=== PATIENT | male | born 1990 | race American Indian/Alaskan Native ===

== ENCOUNTER 2019-04-20 21:09 | Emergency (ER) | payer SELFPAY ==
[2019-04-20 21:20] VITALS: BP 122/82
--- NOTE | 2019-04-20 22:14 | Emergency Department Report ---
Chief Complaint: Urogenital-Male Stated Complaint: STD CHECK - HPI History of Present Illness: 29 yo male desires STD check. MSE performed. Mr. Lanza erick prior to approriate disposition. - Exam Vital Signs: Vital Signs 04/20/19 21:19 Temperature 97.5 F L Pulse Rate 73 Respiratory 17 Rate Blood Pressure 122/82 O2 Sat by Pulse 98 Oximetry MSE screening note: Focused history and physical exam performed. Due to findings the following was ordered: ED Disposition for MSE Clinical Impression: Encounter for medical screening examination Disposition: Z ERICK Condition: Stable
== END 2019-04-20 22:15 | disposition left against medical advice (07) ==
LOC: ED 21:09
DX: A64 Unspecified sexually transmitted disease (principal); Z53.21 Procedure and treatment not carried out due to patient leaving prior to being seen by health care provider
CPT/HCPCS: 99281

== ENCOUNTER 2019-05-19 06:47 | Emergency (ER) | payer SELFPAY ==
[2019-05-19 07:23] VITALS: BP 141/84
--- NOTE | 2019-05-19 08:32 | XRay Report ---
CHEST 2 VIEWS INDICATION / CLINICAL INFORMATION: cough. COMPARISON: None available. FINDINGS: SUPPORT DEVICES: None. HEART / MEDIASTINUM: No significant abnormality. LUNGS / PLEURA: No significant pulmonary or pleural abnormality. No pneumothorax. ADDITIONAL FINDINGS: No significant additional findings. IMPRESSION: No significant abnormality Signer Name: Lance Wells MD FACR Signed: 05/19/2019 8:28 AM Workstation Name: [id number]
--- NOTE | 2019-05-19 08:52 | Emergency Department Report ---
Chief Complaint: Upper Respiratory Infection Stated Complaint: COUGHING BLOODY MUCUS Time Seen by Provider: 05/19/19 08:12 - HPI History of Present Illness: 29-year-old -[place] male presents to the emergency room stating he has a cough and had cold symptoms for a week. Patient states that he was seen at [facility] and was prescribed antibiotics. Patient states that he has been coughing more mucus. Patient states this morning his mucus has a tinge of blood. Patient reports when he takes the Benadryl it seems to help with his nasal mucus production. Patient denies any fever chills no nausea no vomiting no shortness of breath appetite is good. - Exam Vital Signs: Vital Signs 05/19/19 07:22 Temperature 98.3 F Pulse Rate 79 Respiratory 16 Rate Blood Pressure 141/84 O2 Sat by Pulse 100 Oximetry Physical Exam: Gen: alert oriented NAD HEENT: Ears are normal mouth soft wax, throat patent nonerythematous has some postnasal drip nontender to palpate nares turbinates enlargement. Cardic: regular rate and rhythm no murmurs appreciated Resp: Clear to auscultation bilateral no wheezing no rales or rhonchi. Abdomen: Soft nontender nondistended normal bowel sounds. MSE screening note: Focused history and physical exam performed. Due to findings the following was ordered: 29-year-old -[place] male presents to the emergency room stating he has a cough and had cold symptoms for a week. Patient states that he was seen at [facility] and was prescribed antibiotics. Patient states that he has been coughing more mucus. Patient states this morning his mucus has a tinge of blood. Patient reports when he takes the Benadryl it seems to help with his nasal mucus production. Patient denies any fever chills no nausea no vomiting no shortness of breath appetite is good. Recommend taking sspm-exn-btelsme Claritin or Zyrtec's. Recommend taking hkax-dst-ezovjjp omeprazole/Prilosec for acid reflux. Discussed with patient to follow-up with a primary care provider patient will be referred to Dr. Kohli. ED Disposition for MSE Clinical Impression: Allergic rhinitis Qualifiers: Allergic rhinitis seasonality: seasonal Disposition: MED SCREENING EXAM-LEFT Is pt being admited?: No Does the pt Need Aspirin: No Condition: Stable Instructions: Allergic Rhinitis (ED) Additional Instructions: Recommend taking zbmk-zoz-ezxnjut Claritin or Zyrtec's. Recommend taking tzbb-zhk-qwppjcg omeprazole/Prilosec for acid reflux. Follow-up with a primary care provider. I have listed 1 below for your convenience. Referrals: PRIMARY CAREMD [Primary Care Provider] - 3-5 Days WOLF URIBE MD [Staff Physician] - 3-5 Days Forms: Work/School Release Form(ED)
== END 2019-05-19 09:07 | disposition left against medical advice (07) ==
LOC: ED 06:47
DX: J30.9 Allergic rhinitis, unspecified (principal)
CPT/HCPCS: 71046

== ENCOUNTER 2019-09-27 05:07 | Emergency (ER) | payer OTHER ==
[2019-09-27] MEDS ORDERED: ASPIRIN 325 MG TAB PO ONE (05:49)
[2019-09-27] MEDS ORDERED: FAMOTIDINE 20 MG TAB PO ONE (06:14)
[2019-09-27] MEDS ORDERED: NITROGLYCERIN 0.4 MG TAB SUBL SL PRN (06:14)
[2019-09-27] MEDS ORDERED: SODIUM CHLORIDE 0.9% 500 ML 500 ML IV ONE (06:14)
--- NOTE | 2019-09-27 06:15 | Emergency Department Report ---
ED Chest Pain HPI - General Chief Complaint: Chest Pain Stated Complaint: ACID REFLEX/STOMACH PAIN PUI?: No Time Seen by Provider: 09/27/19 06:06 Source: patient, RN notes reviewed Mode of arrival: Ambulatory Limitations: No Limitations - History of Present Illness Initial Comments: Patient is a 29-year-old gentleman who is not known to myself previously, reports a family history of heart disease, as well as possible "acid reflux. He presents to the ER with a complaint of a few days of left-sided chest pain, which does not radiate to the back, arms or neck, without vomiting, diaphoresis, he does endorse intermittent shortness of breath which is not exertional. He denies DVT and pulmonary embolism risk factors. Chest pain increases with palpation, and decreases with rest. It is sometimes worse in the morning. It is not positional with sitting up or sitting down, and does not change when taking a deep breath. Denies fever, cough, and COVID symptomatology. MD Complaint: chest pain -: Gradual, days(s) Pain Location: left chest Pain Radiation: none Severity: mild Quality: aching Consistency: intermittent Improves With: rest Worsens With: palpation re: dyspnea. denies: nausea, vomting, diaphoresis Other Symptoms: denies: cough, fever, syncope Treatments Prior to Arrival: none Aspirin use within the Past 7 Days: (0) No - Related Data Allergies Allergy/AdvReac Type Severity Reaction Status Date / Time No Known Allergies Allergy Verified 04/20/19 21:16 Heart Score - HEART Score History: Slightly suspicious EKG: Non-specific Age: < 45 Risk factors: 1-2 risk factors Troponin: < normal limit HEART Score: 2 - Critical Actions Critical Actions: 0-3 pts:0.9-1.7%risk of adverse cardiac event.Candidate for discharge ED Review of Systems ROS: Stated complaint: ACID REFLEX/STOMACH PAIN Other details as noted in HPI Constitutional: denies: diaphoresis, fever Eyes: denies: eye discharge Respiratory: shortness of breath. denies: cough Cardiovascular: chest pain Gastrointestinal: denies: nausea, vomiting, diarrhea, hematemesis, melena, hem atochezia Genitourinary: denies: dysuria Musculoskeletal: denies: back pain Skin: denies: lesions Neurological: denies: weakness Hematological/Lymphatic: denies: easy bleeding ED Past Medical Hx - Past Medical History Previous Medical History?: Yes Hx GERD: Yes - Social History Smoking Status: Never Smoker Substance Use Type: Alcohol ED Physical Exam - General Limitations: No Limitations General appearance: alert, in no apparent distress - Head Head exam: Present: atraumatic, normocephalic - Eye Eye exam: Present: normal appearance, EOMI. Absent: nystagmus - ENT ENT exam: Present: normal exam, normal orophraynx, mucous membranes moist, normal external ear exam - Neck Neck exam: Present: normal inspection, full ROM. Absent: tenderness, meningismus - Respiratory Respiratory exam: Present: normal lung sounds bilaterally, chest wall tenderness. Absent: respiratory distress, wheezes, rales, rhonchi, stridor - Cardiovascular Cardiovascular Exam: Present: normal rhythm, bradycardia, normal heart sounds. Absent: tachycardia, irregular rhythm, systolic murmur, diastolic murmur, rubs, gallop - GI/Abdominal GI/Abdominal exam: Present: soft, normal bowel sounds. Absent: distended, tenderness, guarding, rebound, rigid, pulsatile mass - Rectal Rectal exam: Present: deferred - Extremities Exam Extremities exam: Present: normal inspection, full ROM, normal capillary refill, other (2+ pulses noted in the bilateral upper and lower extremities. There is no palpable cord. negative Homans sign. Muscular compartments are soft. The pelvis is stable.). Absent: pedal edema, calf tenderness - Back Exam Back exam: Present: normal inspection, full ROM. Absent: tenderness, CVA tenderness (R), CVA tenderness (L), paraspinal tenderness, vertebral tenderness - Neurological Exam Neurological exam: Present: alert, oriented X3, other (No facial droop. Tongue midline. Extraocular movements intact bilaterally. Facial sensation intact to light touch in V1, V2, V3 distribution bilaterally. 5 and a 5 strength in 4 extremities. Sensation intact to light touch in 4 extremities.). Absent: motor sensory deficit - Psychiatric Psychiatric exam: Present: normal affect, normal mood - Skin Skin exam: Present: warm, dry, intact, normal color. Absent: rash ED Course Vital Signs 09/27/19 09/27/19 09/27/19 05:47 06:09 06:14 Temperature 97.4 F L Pulse Rate 65 67 Respiratory 20 16 12 Rate Blood Pressure 131/99 Blood Pressure 132/76 [Left] O2 Sat by Pulse 100 100 100 Oximetry 08/06/20 08/06/20 08/06/20 06:16 06:30 06:46 Temperature Pulse Rate 66 60 60 Respiratory 12 20 21 Rate Blood Pressure 128/74 121/66 Blood Pressure [Left] O2 Sat by Pulse 100 100 100 Oximetry 09/27/19 09/27/19 09/27/19 07:00 07:15 07:30 Temperature Pulse Rate 60 63 61 Respiratory 13 15 15 Rate Blood Pressure 126/80 130/71 116/74 Blood Pressure [Left] O2 Sat by Pulse 100 100 98 Oximetry 09/27/19 09/27/19 09/27/19 07:45 08:00 08:16 Temperature Pulse Rate 63 68 61 Respiratory 23 11 L 21 Rate Blood Pressure 120/71 120/71 124/75 Blood Pressure [Left] O2 Sat by Pulse 99 100 100 Oximetry 09/27/19 09/27/19 09/27/19 08:30 08:45 10:10 Temperature Pulse Rate 57 L 63 70 Respiratory 11 L 24 24 Rate Blood Pressure 131/61 123/72 Blood Pressure 126/75 [Left] O2 Sat by Pulse 99 100 100 Oximetry - Reevaluation(s) Reevaluation #1: 09/27/19 07:37 Differential diagnosis, including but not limited to: GERD, gastritis, hiatal hernia, pneumonia, costochondritis, pericarditis, coronary artery disease Assessment and plan: 29-year-old gentleman, who is afebrile, with reassuring vital signs, not tachycardic, tachypneic or hypoxic, without DVT or pulmonary embolism risk factors, who is low risk by Wells criteria for pulmonary embolism, PERC negative, with reproducible chest wall pain, troponin that is negative, abnormal EKG, likely early repolarization versus pericarditis. The EKG is not morphologically consistent with a STEMI. The EKG was transmitted to our health education director on-call, Dr. Anne Fritz, who agrees that patient does not meet thrombolysis criteria, or require activation of the catheterization lab. On multiple re-evaluations, the patient is resting comfortably, in his stretcher, and in no acute distress. He is at low risk for major adverse cardiac event as per heart score. I will request a formal ER cardiology consultation, to to determine need and urgency for cardiac risk ratification. Cardiology consultation has been requested, we are waiting for them to call back. Reevaluation #2: 09/27/19 08:10 Patient continues to play on his cell phone. He is making multiple requests to leave. Sterile pyuria reviewed and appreciated and asymptomatic. We are waiting for cardiology to call back. Reevaluation #3: 09/27/19 08:43 Patient seen and evaluated by cardiology, Junior Serrano, working with Dr Sergio Mock, they advised the patient can follow-up as an outpatient for further evaluation. Patient requesting to go, playing on his cell phone, and in no acute distress 09/27/19 15:06 Reevaluation #4: 09/27/19 09:51 While in the emergency room, the patient states that he started to urinate a little bit of blood. He denies testicular pain, dysuria and hematuria. He reports multiple sexual contacts in the past few months, intermittently with condoms. Given that he is now having symptoms, will be treated empirically with ceftriaxone and azithromycin. GC culture will be sent. He is instructed to follow-up with outpatient primary care for his pyuria. PHONG score - Phong Score Age > 65: (0) No Aspirin use within the Past 7 Days: (0) No 3 or more CAD Risk Factors: (0) No 2 or more Angina events in past 24 hrs: (0) No Known CAD with more than 50% Stenosis: (0) No Elevated Cardiac Markers: (0) No ST Deviation Greater than 0.5mm: (0) No PHONG Score: 0 ED Medical Decision Making - Lab Data Result diagrams: 09/27/19 06:12 09/27/19 06:12 Vital Signs 09/27/19 09/27/19 05:47 06:14 Temperature 97.4 F L Pulse Rate 65 67 Respiratory 20 12 Rate Blood Pressure 131/99 Blood Pressure 132/76 [Left] O2 Sat by Pulse 100 100 Oximetry Lab Results 09/27/19 09/27/19 09/27/19 Range/Units 06:12 06:12 06:14 WBC 5.8 (4.5-11.0) K/mm3 RBC 5.08 H (3.65-5.03) M/mm3 Hgb 15.3 H (11.8-15.2) gm/dl Hct 45.8 H (35.5-45.6) % MCV 90 (84-94) fl MCH 30 (28-32) pg MCHC 34 (32-34) % RDW 13.2 (13.2-15.2) % Plt Count 221 (140-440) K/mm3 Lymph % (Auto) 28.0 (13.4-35.0) % Caroline % (Auto) 9.1 H (0.0-7.3) % Eos % (Auto) 2.4 (0.0-4.3) % Baso % (Auto) 0.4 (0.0-1.8) % Lymph # 1.6 (1.2-5.4) K/mm3 Caroline # 0.5 (0.0-0.8) K/mm3 Eos # 0.1 (0.0-0.4) K/mm3 Baso # 0.0 (0.0-0.1) K/mm3 Seg Neutrophils % 60.1 (40.0-70.0) % Seg Neutrophils # 3.5 (1.8-7.7) K/mm3 PT (12.2-14.9) Sec. INR (0.87-1.13) Sodium 139 (137-145) mmol/L Potassium 4.0 (3.6-5.0) mmol/L Chloride 101.4 (98-107) mmol/L Carbon Dioxide 25 (22-30) mmol/L Anion Gap 17 mmol/L BUN 13 (9-20) mg/dL Creatinine 0.9 (0.8-1.3) mg/dL Estimated GFR > 60 ml/min BUN/Creatinine Ratio 14 % Glucose 97 (75-100) mg/dL Calcium 9.3 (8.4-10.2) mg/dL Magnesium (1.7-2.3) mg/dL Total Creatine Kinase (55-170) units/L Troponin T < 0.010 (0.00-0.029) ng/mL Urine Color Yellow (Yellow) Urine Turbidity Clear (Clear) Urine pH 5.0 (5.0-7.0) Ur Specific [place] 1.023 (1.003-1.030) Urine Protein <15 mg/dl (Negative) mg/dL Urine Glucose (UA) Neg (Negative) mg/dL Urine Ketones Neg (Negative) mg/dL Urine Blood Neg (Negative) Urine Nitrite Neg (Negative) Urine Bilirubin Neg (Negative) Urine Urobilinogen < 2.0 (<2.0) mg/dL Ur Leukocyte Esterase Tr (Negative) Urine WBC (Auto) 8.0 H (0.0-6.0) /HPF Urine RBC (Auto) 2.0 (0.0-6.0) /HPF U Epithel Cells (Auto) < 1.0 (0-13.0) /HPF Urine Mucus Few /HPF 09/27/19 09/27/19 Range/Units 06:17 06:17 WBC (4.5-11.0) K/mm3 RBC (3.65-5.03) M/mm3 Hgb (11.8-15.2) gm/dl Hct (35.5-45.6) % MCV (84-94) fl MCH (28-32) pg MCHC (32-34) % RDW (13.2-15.2) % Plt Count (140-440) K/mm3 Lymph % (Auto) (13.4-35.0) % Caroline % (Auto) (0.0-7.3) % Eos % (Auto) (0.0-4.3) % Baso % (Auto) (0.0-1.8) % Lymph # (1.2-5.4) K/mm3 Caroline # (0.0-0.8) K/mm3 Eos # (0.0-0.4) K/mm3 Baso # (0.0-0.1) K/mm3 Seg Neutrophils % (40.0-70.0) % Seg Neutrophils # (1.8-7.7) K/mm3 PT 12.1 L (12.2-14.9) Sec. INR 0.89 (0.87-1.13) Sodium (137-145) mmol/L Potassium (3.6-5.0) mmol/L Chloride (98-107) mmol/L Carbon Dioxide (22-30) mmol/L Anion Gap mmol/L BUN (9-20) mg/dL Creatinine (0.8-1.3) mg/dL Estimated GFR ml/min BUN/Creatinine Ratio % Glucose (75-100) mg/dL Calcium (8.4-10.2) mg/dL Magnesium 2.00 (1.7-2.3) mg/dL Total Creatine Kinase 247 H (55-170) units/L Troponin T (0.00-0.029) ng/mL Urine Color (Yellow) Urine Turbidity (Clear) Urine pH (5.0-7.0) Ur Specific [place] (1.003-1.030) Urine Protein (Negative) mg/dL Urine Glucose (UA) (Negative) mg/dL Urine Ketones (Negative) mg/dL Urine Blood (Negative) Urine Nitrite (Negative) Urine Bilirubin (Negative) Urine Urobilinogen (<2.0) mg/dL Ur Leukocyte Esterase (Negative) Urine WBC (Auto) (0.0-6.0) /HPF Urine RBC (Auto) (0.0-6.0) /HPF U Epithel Cells (Auto) (0-13.0) /HPF Urine Mucus /HPF - EKG Data -: EKG Interpreted by Ut EKG shows normal: sinus rhythm Rate: normal - EKG Data 09/27/19 07:28 EKG #1 shows sinus rhythm, bradycardia, 58 bpm, normal axis, normal intervals, high left ventricular voltage, likely early repolarization, question mild [place] depressions, nonspecific concave up ST elevation 1, aVF, V3, V4, V5 and V6. The EKG is abnormal. The EKG is not a STEMI. EKG 2 is essentially unchanged from prior, it is not consistent with an ST elevation myocardial infarction. - Radiology Data Radiology results: report reviewed, image reviewed Print Report Referring Physician: KRYSTYNA CHANDLER Patient Name: JACKSON LEA Date of : 1990 Sex: Male Report Date: 2019-09-27 Report Status: Finalized Findings [address] [address] XRay Report Signed Patient: JACKSON LEA MR#: [id number] : 1990 Acct:[id number] Age/Sex: 29 / M ADM Date: 09/27/19 Loc: ED Attending Dr: Ordering Physician: KRYSTYNA CHANDLER MD Date of Service: 09/27/19 Procedure(s): XR chest 1V ap Accession Number(s): [id number] cc: KRYSTYNA CHANDLER MD Fluoro Time In Minutes: CHEST 1 VIEW 0605 INDICATION / CLINICAL INFORMATION: Chest Pain COMPARISON: 05/19/2019 FINDINGS: SUPPORT DEVICES: None HEART / MEDIASTINUM: No significant abnormality. LUNGS / PLEURA: No significant pulmonary or pleural abnormality. No pneumothorax. ADDITIONAL FINDINGS: No significant additional findings. IMPRESSION: No significant acute abnormality Signer Name: Arjun Cook MD Signed: 09/27/2019 6:33 AM Workstation Name: [id number] Transcribed By: SHAMIKA Dictated By: Arjun Cook MD Electronically Authenticated By: Arjun Cook MD Signed Date/Time: 09/27/19632 DD/ 1 TD/TT: Critical care attestation.: If time is entered above; I have spent that time in minutes in the direct care o f this critically ill patient, excluding procedure time. ED Disposition Clinical Impression: Chest wall pain, Pyuria Disposition: -01 TO HOME OR SELFCARE Is pt being admited?: No Does the pt Need Aspirin: No Condition: Stable Instructions: Nonspecific Urethritis in Men (ED) Additional Instructions: Rest, avoid heavy lifting, and avoid strenuous physical activities. Patient may take Motrin/ibuprofen, 400 mg by mouth, with food, every 6 hours as needed for pain, alternating with Tylenol kyir-rgd-dfdohsw, 650 mg by mouth, every 4-6 hours as needed for pain, maximum daily dose of Tylenol to not exceed 3 g per 24 hours. Follow-up with a partition assembler within the next 3 to 5 days. Follow-up with a primary care doctor within the next month. Avoid consumption of heavy and/or spicy foods, and alcohol. Please return to the emergency room right away with new pain, worsening pain, migration of pain, projectile vomiting, change in mental status, confusion, inability to tolerate liquid feeds, new, worsened or different symptoms not present on the initial emergency room evaluation. Cultures were sent today, and results will be available next 3-5 days. Please have your primary care doctor call the medical records department to obtain your culture results. recommend outpatient testing for sexually transmitted diseases, including hepatitis, syphilis and HIV. I also recommend that you abstain from sexual activity until a physician states that it is safe for you to resume sexual activity, and any partners that you have been sexually active with have been tested/treated/evaluated for sexual transmitted diseases. Referrals: PRIMARY CARE, [Primary Care Provider] - 3-5 Days WOLF URIBE MD [Staff Physician] - as needed (primary care) LUOISE JAMA MD [Staff Physician] - 3-5 Days (cardiology) Forms: Work/School Release Form(ED)
[2019-09-27 06:30] LABS: Basophils % (Auto) 0.4 % (0.0-1.8); Eosinophils # (Auto) 0.1 K/mm3 (0.0-0.4); Eosinophils % (Auto) 2.4 % (0.0-4.3); Hematocrit 45.8 % (35.5-45.6); Hemoglobin 15.3 gm/dl (11.8-15.2); Lymphocytes # (Auto) 1.6 K/mm3 (1.2-5.4); Mean Corpuscular HGB Conc 34 % (32-34); Mean Corpuscular Volume 90 fl (84-94); Monocytes # (Auto) 0.5 K/mm3 (0.0-0.8); Monocytes % (Auto) 9.1 % (0.0-7.3); Platelet Count 221 K/mm3 (140-440); Red Blood Count 5.08 M/mm3 (3.65-5.03); Red Cell Distribution Width 13.2 % (13.2-15.2)
--- NOTE | 2019-09-27 06:37 | XRay Report ---
CHEST 1 VIEW 0605 INDICATION / CLINICAL INFORMATION: Chest Pain COMPARISON: 05/19/2019 FINDINGS: SUPPORT DEVICES: None HEART / MEDIASTINUM: No significant abnormality. LUNGS / PLEURA: No significant pulmonary or pleural abnormality. No pneumothorax. ADDITIONAL FINDINGS: No significant additional findings. IMPRESSION: No significant acute abnormality Signer Name: Arjun Cook MD Signed: 09/27/2019 6:33 AM Workstation Name: [id number]
[2019-09-27 06:40] LABS: INR 0.89 (0.87-1.13)
[2019-09-27 06:54] LABS: BUN/Creatinine Ratio 14; Blood Urea Nitrogen 13 mg/dL (9-20); Calcium 9.3 mg/dL (8.4-10.2); Hemolysis Index 15
[2019-09-27 07:11] LABS: Bilirubin,Urine NEG (Negative); Blood,Urine NEG (Negative); Color,Urine Yellow (Yellow); Mucus,Urine FEW /HPF; Protein,Urine <15 mg/dL mg/dL (Negative); Urobilinogen,Urine < 2.0 mg/dL (<2.0)
[2019-09-27 07:47] LABS: Amphetamine Screen,Urine Negative; Benzodiazepines Screen,Urine Negative; Cocaine Screen,Urine Negative; Methadone Screen,Urine Negative; Opiate Screen,Urine Negative
[2019-09-27 08:00] LABS: Cannabinoid Screen,Urine Positive
[2019-09-27] MEDS ORDERED: AZITHROMYCIN 250 MG TAB PO ONE (09:49)
[2019-09-27] MEDS ORDERED: LIDOCAINE-MPF (1%) 10 MG/1 ML VIAL 5 ML INFILTRATI ONE (09:50)
[2019-09-27 10:29] VITALS: BP 126/75
== END 2019-09-27 10:36 | disposition home or self-care (01) ==
LOC: ED 05:07
DX: R07.89 Other chest pain (principal); R06.02 Shortness of breath; R82.81 Pyuria; K21.9 Gastro-esophageal reflux disease without esophagitis; Z79.899 Other long term (current) drug therapy
CPT/HCPCS: 36415; 71045; 80048; 80307; 81001; 82550; 83735; 84484; 85025; 85610; 87591; 93005; 96360; 96372; 99284; J0696; J7040